=== PATIENT | male | born 1965 | race Caucasian/White ===

== ENCOUNTER → 2024-04-06 | Outpatient (CLI) | payer OTHER | LOC: M SOG 07:50 | PROVIDERS: ATTEND Physician Assistant | DX: M25.512 Pain in left shoulder (principal) ==

== ENCOUNTER → 2024-08-03 | Outpatient (REF) | LOC: M PLAIMG 09:24 | PROVIDERS: ATTEND Internal Medicine | DX: R52 Pain, unspecified (principal) ==

== ENCOUNTER 2024-10-27 22:50 | Emergency (ER) | payer BC, OTHER ==
[~2024-10-27] VITALS: Ht 170.2 cm; Wt 108.9 kg
[2024-10-27 22:52] VITALS: TEMP 96.9
[2024-10-27] MEDS ORDERED: KETOROLAC 30 MG/ML 1ML VIAL IV ONE (23:20)
[2024-10-27] MEDS: diazePAM 10MG/2ML SYRINGE IM ONE (23:36)
[2024-10-27] MEDS: KETOROLAC 60MG 2ML VIAL IM ONE (23:37)
[2024-10-28] MEDS: ANEXSIA, NORCO 7.5MG/325MG TABLET(HYDROCODONE/APAP) PO ONE (00:59)
[2024-10-28] MEDS: LIDOCAINE 5% (LIDODERM) PATCH TD ONE (01:00)
[2024-10-28] MEDS ORDERED: HYDR-3713 PO (02:01)
[2024-10-28] MEDS ORDERED: VALI5TAB PO (02:01)
[2024-10-28] MEDS ORDERED: LIDO5DIS41 TD (02:01)
[2024-10-28 02:36] VITALS: BP 140/80; O2SAT 98
== END 2024-10-28 02:41 | disposition home or self-care (01) ==
LOC: M ED 22:50
DX: S22.32XA Fracture of one rib, left side, initial encounter for closed fracture (principal); Y92.9 Unspecified place or not applicable; Y93.9 Activity, unspecified; Y99.9 Unspecified external cause status; W00.0XXA Fall on same level due to ice and snow, initial encounter; E78.5 Hyperlipidemia, unspecified; K21.9 Gastro-esophageal reflux disease without esophagitis; Z79.1 Long term (current) use of non-steroidal anti-inflammatories (NSAID); Z79.899 Other long term (current) drug therapy
CPT/HCPCS: 71250; 94010; 96372; 99283; J1885; J3360